=== PATIENT | female | born 1960 | race Caucasian/White ===

== ENCOUNTER → 2021-08-12 | Outpatient (CLI) | payer MEDICAID ==
--- NOTE | 2021-08-12 17:54 | KCIC ---
EXAM: XR CERVICAL SPINE 2-3V 08/12/2021 10:28 AM CLINICAL INDICATION: Left-sided neck pain post stroke COMPARISON: None TECHNIQUE: 4 views of the cervical FINDINGS: No acute fracture. There is straightening of lordosis. No listhesis. There is mild to mode rate disc space narrowing with small anterior osteophytes and uncovertebral joint proliferation at C5 -C6 and C6-C7. The remaining disc spaces are maintained. Mild multilevel facet arthrosis. Small calci fications in the carotid bulbs. Multiple tiny nodules in the lung apices. IMPRESSION: 1. Mild to moderate degenerative disc disease at C5-C6 and C6-C7. 2. Multiple tiny nodules in the lung apices. Correlate with dedicated chest radiograph. Electronically signed by: Alee Malloy MD (08/12/2021 5:52 PM) [id number]
== END ==
LOC: KCIC 10:25
PROVIDERS: ATTEND Family Medicine
DX: M50.322 Other cervical disc degeneration at C5-C6 level (principal); M48.02 Spinal stenosis, cervical region; I65.23 Occlusion and stenosis of bilateral carotid arteries; R91.8 Other nonspecific abnormal finding of lung field; J01.91 Acute recurrent sinusitis, unspecified; R53.83 Other fatigue; Z68.41 Body mass index [BMI] 40.0-44.9, adult
CPT/HCPCS: 72040